=== PATIENT | female | born 1990 | race Caucasian/White ===

== ENCOUNTER 2016-09-26 13:49 | Inpatient (IN) | payer BC, OTHER ==
[~2016-09-26] VITALS: Ht 162.6 cm; Wt 85.0 kg
[2016-09-26] VITALS (9 sets, daily range): BP systolic 114–137; BP diastolic 58–77
[2016-09-26] MEDS: PRENATAL VITAMIN TAB PO SCH (09:00)
[~2016-09-26 13:49] MED LIST: *ANUSOI RE; ACET500C OR; COLA100C2 OR; IBUP600T OR; LANOLIN CREAM TOP; MILKSUS OR; PRENTAB8 PO; VICO5TAB OR
[2016-09-26] MEDS ORDERED: LR 1,000 ML IV SCH ×3 (14:15→16:28)
[2016-09-26] MEDS ORDERED: LACTATED RINGER'S 1000 ML IV STA (14:15)
[2016-09-26] MEDS ORDERED: OXYTOCIN 30 UNITS IN 0.9% NaCl 500ML IV BAG (J2590) As Ordered ONE (14:57)
[2016-09-26] MEDS ORDERED: PROMETHAZINE 25 MG TAB PO PRN ×2 (15:30→16:30)
[2016-09-26] MEDS ORDERED: RHOGAM 300 MCG (1500 IU) INJ (J2790) IM SCH ×2 (15:30→16:30)
[2016-09-26] MEDS ORDERED: PERCOCET 5MG/325MG TAB PO PRN ×2 (15:30)
[2016-09-26] MEDS ORDERED: ONDANSETRON 4MG/2ML VIAL (J2405) IV PRN ×2 (15:30→16:30)
[2016-09-26] MEDS ORDERED: MEASLES,MUMPS,RUBELLA VACCINE INJ (MMR-II) (90707) SC SCH ×2 (15:30→16:30)
[2016-09-26] MEDS ORDERED: KETOROLAC 30 MG/ML VIAL (J1885) IV SCH (16:00)
[2016-09-26] MEDS ORDERED: OXYTOCIN DRIP 30 UNITS in APPROPRIATE DILUENT 1 EA IV SCH (16:28)
[2016-09-26] MEDS ORDERED: DOCUSATE SODIUM 100 MG CAP PO PRN (16:30)
[2016-09-26] MEDS ORDERED: IBUPROFEN 800 MG TAB PO PRN (16:30)
[2016-09-26] MEDS ORDERED: ACETAMINOPHEN 500 MG TAB PO PRN (16:30)
[2016-09-26] MEDS ORDERED: DIBUCAINE 1% OINTMENT 30GM TOP PRN (16:30)
[2016-09-26 19:04] LABS: MEAN CORPUSCULAR HEMOGLOBIN 29.4 pg (27.0-33.0); MEAN CORPUSCULAR HGB CONC 33.9 g/dl (32.0-36.5); MEAN CORPUSCULAR VOLUME 86.8 fl (80.0-96.0); RED CELL DISTRIBUTION WIDTH 12.7 % (11.5-14.5); WHITE BLOOD COUNT 21.3 K/mm3 (4.0-10.0)
[2016-09-26] MEDS ORDERED: DOCUSATE SODIUM 100 MG CAP PO SCH (21:00)
[2016-09-27 06:00] VITALS: BP 130/71
[2016-09-27] MEDS ORDERED: IBUP-1114 PO (07:05)
[2016-09-27] MEDS ORDERED: ACET50TA PO (07:05)
[2016-09-27] MEDS: PRENATAL VITAMIN TAB PO SCH (08:03)
[2016-09-27] MEDS ORDERED: PRENATAL VITAMIN TAB PO SCH (09:00)
[2016-09-27] MEDS ORDERED: IBUPROFEN 800 MG TAB PO SCH (18:00)
[2016-09-28] MEDS ORDERED: ADACEL/BOOSTRIX VACCINE (DIPHTH/PERTUSS/ACELL/TETANUS)0.5ML SYR (90715) IM ONE (09:00)
== END 2016-09-27 17:20 | disposition home or self-care (01) | DRG 775 ==
LOC: M LDO 13:49 → M LDI 14:05 → M OBS 17:51
PROVIDERS: ADMIT Obstetrics & Gynecology; ATTEND Obstetrics & Gynecology
PROC: 10E0XZZ Delivery of Products of Conception, External Approach (ICD-10-PCS; principal; 2016-09-26)
DX: O48.0 Post-term pregnancy (principal); Z37.0 Single live birth; Z3A.40 40 weeks gestation of pregnancy; O34.219 Maternal care for unspecified type scar from previous cesarean delivery

== ENCOUNTER 2017-06-11 14:06 | Emergency (ER) | payer OTHER ==
[~2017-06-11] VITALS: Ht 162.6 cm; Wt 76.3 kg
[~2017-06-11 14:06] MED LIST changes: +ACET50TA PO; +IBUP-1114 PO
[2017-06-11 16:03] LABS: BASO % 0.6 % (0.0-1.0); EOS # 0.1 10^3/uL (0.0-0.50); EOS % 1.9 % (0.0-3.0); IMMATURE GRANULOCYTE % 0.3 % (0-0); LYMPH # 1.8 10^3/uL (1.5-6.5); MEAN CORPUSCULAR HEMOGLOBIN 28.8 pg (27.0-33.0); MEAN CORPUSCULAR HGB CONC 33.2 g/dl (32.0-36.5); MEAN CORPUSCULAR VOLUME 86.8 fl (80.0-96.0); MONO # 0.5 10^3/uL (0.0-0.8); MONO % 7.4 % (0.0-5.0); NEUTROPHILS # 4.3 10^3/uL (1.8-7.7); NEUTROPHILS % 62.8 % (36.0-66.0); PLATELET COUNT, AUTOMATED 264 10^3/uL (150-450); RED CELL DISTRIBUTION WIDTH 12.7 % (11.5-14.5); WHITE BLOOD COUNT 6.8 10^3/uL (4.0-10.0)
[2017-06-11 16:13] LABS: ANION GAP 3 MEQ/L (8-16); BLOOD UREA NITROGEN 11 MG/DL (7-18); CALCIUM LEVEL 8.9 MG/DL (8.5-10.1); CARBON DIOXIDE LEVEL 30 MEQ/L (21-32); CHLORIDE LEVEL 106 MEQ/L (98-107); CREATININE FOR GFR 0.61 MG/DL (0.55-1.02); GLOMERULAR FILTRATION RATE > 60.0 (>60); GLUCOSE, FASTING 78 MG/DL (70-105); POTASSIUM SERUM 3.8 MEQ/L (3.5-5.1); SODIUM LEVEL 139 MEQ/L (136-145)
--- NOTE | 2017-06-11 16:24 | REP ---
Abdominal right lower quadrant ultrasound: There is tenderness to transducer pressure over the right lower quadrant. However, the appendix could not be visualized. There is no rebound tenderness. There is no induration of the mesenteric fat. No mesenteric lymph nodes are identified. There is no free fluid in the right lower quadrant. Peristalsing bowel were visualized. The cecum was visualized. No iliac nodes are identified. The right ovary is identified and normal size measuring 3.8 x 2.2 x 1.6 cm. There is vascular flow in the right ovary with the Doppler resistive index of the intraparenchymal arteries measuring 0.74. There is no dominant ovarian mass or cyst. Impression: There is tenderness to transducer pressure in the right lower quadrant. Otherwise, negative ultrasound of the right lower quadrant. The appendix could not be visualized. Signed by Regino Gonzalez MD 06/11/2017 04:14 P
[2017-06-11 17:15] VITALS: BP 106/63
== END 2017-06-11 17:16 | disposition home or self-care (01) ==
LOC: M ED 14:06
DX: R10.31 Right lower quadrant pain (principal)